=== PATIENT | male | born 2000 | race Hispanic/Latino ===

== ENCOUNTER 2023-06-06 21:20 | Inpatient (IN) | payer MEDICAID, OTHER ==
[~2023-06-06] VITALS: Ht 175.3 cm; Wt 56.2 kg
[2023-06-06 23:29] LABS: BASOPHILS # (AUTO) 0.06 K/uL (0.00-0.20); BASOPHILS % (AUTO) 0.7 % (0.0-5.0); EOSINOPHILS # (AUTO) 0.15 K/uL (0.00-0.70); EOSINOPHILS % (AUTO) 1.8 % (0.0-8.0); HEMATOCRIT 45.9 % (42-54); IMMATURE GRANULOCYTE ABSOLUTE 0.03 K/uL (0-1); LYMPHOCYTES # (AUTO) 1.9 K/uL (1.0-4.8); LYMPHOCYTES % (AUTO) 23.3 % (21.0-51.0); MEAN CORPUSCULAR HEMOGLOBIN 27.6 pg (27.0-33.0); MEAN CORPUSCULAR HGB CONC 33.6 g/dL (32.0-36.0); MEAN CORPUSCULAR VOLUME 82.4 fL (79-99); MONOCYTES # (AUTO) 0.6 K/uL (0.1-1.0); MONOCYTES % (AUTO) 6.6 % (3.0-13.0); NEUTROPHILS # (AUTO) 5.6 K/uL (1.8-7.7); NEUTROPHILS % (AUTO) 67.2 % (40.0-77.0); PLATELET COUNT (AUTO) 208 K/uL (130-400); RED BLOOD CELL COUNT(AUTO) 5.57 MIL/uL (4.50-6.20); RED CELL DISTRIBUTION WIDTH 11.5 % (11.0-15.5); WHITE BLOOD COUNT (AUTO) 8.3 K/uL (4.8-10.8)
[2023-06-06 23:38] LABS: CREATININE 0.8 mg/dL (0.5-1.5)
[2023-06-06 23:40] LABS: INR 0.94 (0.85-1.15)
[2023-06-06 23:41] LABS: PARTIAL THROMBOPLASTIN TIME 27.3 SEC (26.3-35.5)
[2023-06-06 23:43] LABS: ALBUMIN 4.5 g/dL (3.5-5.0); BILIRUBIN,TOTAL 0.4 mg/dL (0.2-1.0); TOTAL PROTEIN, SERUM 8.2 g/dL (6.0-8.3)
[2023-06-07] MEDS ORDERED: 0.9%NACL 1000ML 1,000 ML IV SCH
[2023-06-07] MEDS ORDERED: LACTULOSE 20 GM/30 ML UDCUP PO PRN
[2023-06-07] MEDS ORDERED: ONDANSETRON 4MG INJ IV PRN
[2023-06-07] MEDS ORDERED: ACETAMINOPHEN 325 MG TAB PO PRN ×2
[2023-06-07] MEDS ORDERED: IOHEXOL 350 MG/ML 100ML INFUS..BTL IV ONE (12:18)
[2023-06-07 17:00] VITALS: BP 140/76; PULSE 60; RESP 18; O2SAT 99
== END 2023-06-07 16:30 | DRG 254 ==
LOC: EDH 21:20 → UNDOADMIN 21:21 → EEVIPCON 21:21 → EDHIP 21:21
PROVIDERS: ADMIT Hospitalist; ATTEND Hospitalist
DX: T18.8XXA Foreign body in other parts of alimentary tract, initial encounter (principal); R45.851 Suicidal ideations; X58.XXXA Exposure to other specified factors, initial encounter
CPT/HCPCS: 36415; 71045; 74018; 74177; 80053; 85025; 85610; 85730; G0378; J7030; Q9967